=== PATIENT | male | born 1985 | race Caucasian/White ===

== ENCOUNTER 2016-04-11 16:16 | Emergency (ER) | payer OTHER ==
[~2016-04-11] VITALS: Ht 193 cm; Wt 130.0 kg
[~2016-04-11 16:16] MED LIST: LORTA5 PO
[2016-04-11 16:22] VITALS: BP 142/70; PULSE 74; RESP 14; TEMP 98; O2SAT 99
--- NOTE | 2016-04-11 17:21 | PD ---
HPI Chief Complaint: Injury Time Seen by Provider: 17:19 Travel History International Travel<30 days: No Contact w/Intl Traveler<30days: No Traveled to known affect area: No History of Present Illness HPI Patient comes in complaining of sharp shooting pain in his right first metacarpal that began 2 days ago. Patient states he was punching a heavy bag barehanded when he jammed his thumb causing the injury. Patient denies taking anything for this. Pain is worse with certain movement of his thumb and trying to diet attendant things. Denies any numbness or tingling. Patient is right-hand dominant. [facility] Past Medical History Medical History: Denies Significant Hx Social History Tobacco Use: No Substance Use: No Allergies-Medications (Allergen,Severity, Reaction): Coded Allergies: Tramadol (Verified Allergy, Severe, VOMITING, 04/11/16) Reported Meds & Prescriptions Reported Meds & Active Scripts Active [place] (Hydrocodone-Acetaminophen) 5-325 mg Tab 1 Tab PO Q8HR PRN Naprosyn (Naproxen) 500 Mg Tab 500 Mg PO Q12HR PRN Review of Systems Except as stated in HPI: all other systems reviewed are Neg Physical Exam Narrative GENERAL: Well-developed, overly nourished, in no acute distress, and non-ill appearing. SKIN: Warm and dry. HEAD: Atraumatic. Normocephalic. EYES: Pupils equal and round. EOMI. No scleral icterus. No injection or drainage. ENT: No nasal bleeding or discharge. Mucous membranes pink and moist. NECK: Trachea midline. Supple. No nuclear rigidity. CARDIOVASCULAR: Radial pulses 2+, tach, equal bilaterally. Capillary refill less than 2 seconds. RESPIRATORY: No accessory muscle use. No respiratory distress. MUSCULOSKELETAL: No obvious deformities. No clubbing. No cyanosis. No edema. Full range of motion. Wrist: FROM and equal BL with passive flexion, extension, and pronation/supination. Capillary refill less than 2 seconds distal to injury and equal BL. FROM distal to injury and equal BL. Strength distal to injury equal BL. NV intact distal to injury. Flexion and extension of thumb equal BL. Equal strength and movement with abduction/adductions of BL fingers. Masonry Supervisor strength equal BL. No tenderness to the anatomical snuffbox. Patient reports tenderness palpation over first metacarpal right upper extremity. There is soft tissue swelling noted. NEUROLOGICAL: Awake and alert. No obvious cranial nerve deficits. Motor grossly within normal limits. Normal speech. PSYCHIATRIC: Appropriate mood and affect; insight and judgment normal. Data Data Last Documented VS Vital Signs Date Time Temp Pulse Resp B/P Pulse Ox O2 Delivery O2 Flow Rate FiO2 04/11/16 16:22 98.0 74 14 142/70 99 Orders Hand, Complete ([id number]) (04/11/16 ) Ice/Cold Pack (04/11/16 17:17) Splint Or Brace Apply/Monitor (04/11/16 17:43) Fiberglass Thumb Spica Adult (04/11/16 ) MDM Medical Decision Making Medical Screen Exam Complete: Yes Emergency Medical Condition: Yes Differential Diagnosis Fracture, sprain, dislocation, other Narrative Course The patient sustained a fracture. The distal extremity appears neurovascularly intact, without evidence of neurovascular injury nor compartment syndrome. Tendon exam also was intact. The effected limb was splinted. The patient was discharged on pain medication along with fracture and splint care instructions and given warnings for vascular compromise. The patient is to follow up with hand surgeon. The patient agrees with plan. Patient in no obvious distress upon re-evaluation. All pertinent Radiology result(s) discussed with patient. Patient was asked if they wanted to speak to my attending, which the patient did not wish to do at this time. Any questions/ concerns in reference to patient diagnosis/condition discussed and clarified prior to patient's discharge. Reinforced sheer importance of close follow up with hand surgeon. Instructed patient to return to ED immediately, if symptoms return/worsen. Pt showed understanding of above instructions. Further instructions and recommendations were detailed in discharge paperwork. Pt ambulated without difficulty out of ED at discharge. Diagnosis Primary Impression: First metacarpal bone fracture Qualified Code: S62.231A - Closed nondisplaced fracture of base of first metacarpal bone of right hand, unspecified fracture morphology, initial encounter Referrals: Myrtle Licona MD Patient Instructions: General Instructions, Hand Fracture (ED), How to Use a Sling (GEN), Splint Care (DC) Departure Forms: Tests/Procedures Additional Instructions: Follow-up with and surgeon as soon as possible.. Take all medication as prescribed. Apply ice to affected area 20 minutes per hour as needed for pain. Elevate affected hand to decrease pain and swelling. Return to the emergency department if symptoms get worse. Med/Other Pt SpecificInfo: Prescription(s) given Scripts Hydrocodone-Acetaminophen ([place])5-325 mg Tab1 Tab PO Q8HR PRN (PAIN GREATER THAN 7) #9 TAB Ref 0 Prov:Ok Ruvalcaba MD 04/11/16 Naproxen (Naprosyn)500 Mg Ssq600 Mg PO Q12HR PRN (PAIN SCALE 1 TO 10) #14 TAB Ref 0 Prov:Ok Ruvalcaba MD 04/11/16 Disposition: 01 DISCHARGE HOME Condition: Stable Krystian Roach Apr 11, 2016 17:21
--- NOTE | 2016-04-11 17:39 | RADRPT ---
EXAM DATE/TIME: 04/11/2016 17:26 [facility] COMPARISON: No previous studies available for comparison. INDICATIONS : Patient was boxing and punched a punching bag two days ago. Complains of right hand pain near 1st dig it. MEDICAL HISTORY : None. SURGICAL HISTORY : None. ENCOUNTER: Initial ACUITY: 1 day PAIN SCORE: 5/10 LOCATION: Right Hand. FINDINGS: There is a fracture involving the base of the first metacarpal. The fracture is nondisplaced. No join t dislocation is demonstrated. The rest of the bony structures are grossly intact. CONCLUSION: Nondisplaced fracture base of the first metacarpal. Dixon Pritchard MD on April 11, 2016 at 17:35 Board Certified Radiologist. This report was verified electronically.
[2016-04-11] MEDS ORDERED: NORC5TAB PO (17:50)
[2016-04-11] MEDS ORDERED: NAPR500 PO (17:50)
== END 2016-04-11 18:31 | disposition home or self-care (01) ==
LOC: NEPB 16:16
DX: S62.234A Other nondisplaced fracture of base of first metacarpal bone, right hand, initial encounter for closed fracture (principal); W21.89XA Striking against or struck by other sports equipment, initial encounter; Y93.71 Activity, boxing
CPT/HCPCS: 73130; 99283; L3808